=== PATIENT | female | born 1950 | race Caucasian/White ===

== ENCOUNTER 2023-11-30 10:11 | Outpatient (CLI) | payer MEDICARE, SELFPAY ==
--- NOTE | 2023-11-30 10:17 | MM_ITS ---
WS: [id number] BILATERAL 3D TOMOSYNTHESIS DIGITAL DIAGNOSTIC MAMMOGRAPHY WITH CAD CLINICAL INFORMATION: LUMP OR MASS IN BREAST HISTORY: Palpable LEFT breast nodule COMPARISON: 2007 TECHNIQUE: Bilateral CC, MLO, and ML views. FINDINGS: The breasts are composed of heterogeneous fibroglandular density, which can limit the detection of sm all underlying mass lesions. Deep to the palpable marker upper outer LEFT breast spiculated irregular lesion measuring 1.8 x 2.1 cm suspicious for neoplasm. Additional small 5 mm ovoid lesion posteriorly near the chest wall near the 6 o'clock position. Ultra sound of this area also performed. Ultrasound LEFT breast is pending. ULTRASOUND BREAST LEFT TECHNIQUE: Ultrasound left breast focused area of concern. CLINICAL INFORMATION: LUMP OR MASS IN BREAST FINDINGS: Ultrasound upper outer quadrant LEFT breast. At the 1 o'clock position 5 cm from the nipple is an irr egular hypoechoic mass suspicious for neoplasm measuring 2.3 x 2.1 x 2.0 cm. Associated irregular mar gins suspicious for surrounding parenchymal invasion. Recommend ultrasound-guided biopsy of this lesi on. No abnormalities visualized in the LEFT axilla. No enlarged lymph nodes visualized. No abnormalities visualized near the 6 o'clock position LEFT breast. MM/MM diag BI tomosynthesis [id number] IMPRESSION: DENSITY: The breasts are heterogeneously dense, which may obscure small masses. BI-RADS: 5 - Highly suggestive of Malignancy FOLLOW UP: US Guided Biopsy Recommended Recommend ultrasound-guided biopsy of the upper outer quadrant LEFT breast mass
== END 2023-11-30 10:12 | disposition home or self-care (01) ==
LOC: RAD 10:16
PROVIDERS: PCP Family Medicine; Visit Provider Family Medicine
DX: N63.22 Unspecified lump in the left breast, upper inner quadrant (principal); R92.333 Mammographic heterogeneous density, bilateral breasts
CPT/HCPCS: 76642; 77062; G0279

== ENCOUNTER → 2023-12-13 08:44 | Outpatient (BNVA) | payer MEDICARE, SELFPAY | PROVIDERS: PCP Family Medicine; Referring Provider Family Medicine; Visit Provider Surgery | DX: N64.59 Other signs and symptoms in breast (principal); N63.21 Unspecified lump in the left breast, upper outer quadrant | CPT/HCPCS: 99204 ==

== ENCOUNTER 2023-12-27 10:52 | Outpatient (CLI) | payer MEDICARE, SELFPAY | END 2023-12-27 10:53 | disposition home or self-care (01) | LOC: RAD 10:52 | PROVIDERS: PCP Family Medicine; Visit Provider Family Medicine | DX: D05.02 Lobular carcinoma in situ of left breast (principal) | CPT/HCPCS: 19083; 88305; 88361; 88374 ==

== ENCOUNTER → 2024-01-04 09:50 | Outpatient (BNVA) | payer MEDICARE, SELFPAY | PROVIDERS: PCP Family Medicine; Visit Provider Surgery | DX: Z09 Encounter for follow-up examination after completed treatment for conditions other than malignant neoplasm (principal); C50.912 Malignant neoplasm of unspecified site of left female breast | CPT/HCPCS: 99215 ==

== ENCOUNTER 2024-01-08 13:58 | Oncology outpatient (recurring) (ONCR) | payer MEDICARE, SELFPAY | END 2024-01-13 23:59 | disposition home or self-care (01) | LOC: ONCMED 13:58 | PROVIDERS: PCP Family Medicine; Visit Provider Internal Medicine Medical Oncology | DX: C50.912 Malignant neoplasm of unspecified site of left female breast (principal) | CPT/HCPCS: 99204 ==

== ENCOUNTER 2024-01-15 05:42 | Day surgery (SDC) | payer MEDICARE, SELFPAY ==
[2024-01-15] VITALS (12 sets, daily range): BP systolic 130–165; BP diastolic 56–85; PULSE 69–83; RESP 12–18; TEMP 36.1–36.4; O2SAT 96–99; BMI 25.9
--- NOTE | 2024-01-15 05:54 | NM_ITS ---
WS: [id number] NUCLEAR MEDICINE SENTINEL LYMPH NODE IMAGING HISTORY: left breast cancer. Mass localizes to 1:00, 5 cm from the nipple as noted on prior imaging jefferson baltaazr. COMPARISON: LEFT breast ultrasound and biopsy 12/27/2023 TECHNIQUE: The patient was injected with 512 uCi of Technetium 99 Tilmanocept injection is intraderm al LEFT upper quadrant. Single injection. On the imaging several lymph nodes are identified extending towards the LEFT axilla and axillary tail. NM/NM sentinel node inject [id number] IMPRESSION: Uncomplicated sentinel node injection LEFT breast.
--- NOTE | 2024-01-15 06:27 | PC.NURSE ---
0628 - to nuclear med.
--- NOTE | 2024-01-15 07:58 | PC.NURSE ---
0758 - returned from [facility]
[2024-01-15] MEDS: sodium chloride 0.9% 1,000 ML 30 ML IV (08:04)
--- NOTE | 2024-01-15 08:16 | ANES.PREANE2 ---
Pre-Anesthetic Assessment Height/Weight: Height 5 ft 5 in Weight 156 lb Temp Pulse Resp BP Pulse Ox O2 Del Method 97.3 F L 74 18 165/85 97 Room Air 01/15/24 06:11 01/15/24 06:11 01/15/24 06:11 01/15/24 06:11 01/15/24 06:11 01/15/24 06:19 Preop Diagnosis: Breast carcinoma Operation Date: 01/15/24 09:35 Proposed Procedures p left breast lumpectomy sentinel node biopsy 22825, 82342, 56418, 46005, C50.912, N63.0(Left) - Kurt Segura MD s Lymphoscintigraphy(Left) - Kurt Segura MD Was Beta Alexander taken within 24 hours: N/A Was Clonidine taken within 24 hours: N/A Last intake: Intake Last Liquid Date 01/14/24 Last Liquid Time 21:30 Last Solid Date 01/14/24 Last Solid Time 17:30 Social No alcohol and No tobacco Exam alert, oriented x 3, clear to auscultation bilaterally and regular rate & rhythm Airway Submandibular: within normal limits Cervical ROM: within normal limits Mallampati: Class I Dentition: full Anesthetic Plan ASA status: 3 Anesthesia: General Other: History of PONV NPO since yesterday History of GERD, controlled with omeprazole Denies any cardiac or pulmonary issues Preop BP 165/85 METs greater than 4 Plan for general anesthetic Medications/Allergies Home Medications Medication Instructions Recorded Confirmed Last Taken Type omeprazole 20 mg capsule,delayed 20 mg PO DAILY PRN Acid Reflux 12/13/23 01/15/24 01/14/24 21:30 History release Allergies Allergy/AdvReac Type Severity Reaction Status Date / Time No Known Allergies Allergy Verified 01/10/24 12:37 Current Medications Generic Name Dose Route Start Last Admin Trade Name Freq PRN Reason Stop Dose Admin Sodium Chloride 1,000 mls @ 30 mls/hr 01/15/24 06:00 01/15/24 08:04 Sodium Chloride 0.9% IV 01/16/24 05:59 30 mls/hr .Q24H PHILIP Administration PFSH Anesthesia Family History Father Lymphoma Family/Other Breast cancer aunts on both sides Social History Smoking and tobacco/nicotine status: never used tobacco/nicotine Data Anesthesia Cardiac Studies: No Data to Display
--- NOTE | 2024-01-15 09:10 | P.HPUD_ITS ---
Surgery/Procedure H&P Update DATE OF PROCEDURE: January 15, 2024 DATE H&P PERFORMED: 01/04/24 H&P UPDATE INFORMATION: I have reviewed H&P completed within last 30 days, I have examined patient prior to procedure, No changes to prior documentation and H&P is in [facility] EMR on date indicated CHANGES TO PREVIOUS DOCUMENTATION: I had extensive discussion with the patient regarding proposed surgery, I discussed all recent benefits of the procedure including the risks of bleeding, infection, positive margins requiring further surgical excision, abscess formation, poor cosmetic outcome, need for additional surgical interventions. Regarding the axillary explained the risks of injury to the nerves and arteries resulting in long-term sequela to the left upper extremity, risk of needing to return to the OR for an axillary dissection in the case of a positive note. Patient shows understanding agrees to proceed. PREOP DIAGNOSIS: Breast carcinoma PLANNED PROCEDURE: Operation Date: 01/15/24 09:35 Proposed Procedures p left breast lumpectomy sentinel node biopsy 35088, 06852, 99721, 15611, C50.912, N63.0(Left) - Kurt Segura MD s Lymphoscintigraphy(Left) - Kurt Segura MD
[2024-01-15] MEDS: ceFAZolin 2,000 mg SDV 2000 MG IVP (09:41)
[2024-01-15] MEDS: isosulfan blue 10 mg/mL SDV 5mL SUBCUT (10:16)
[2024-01-15] MEDS: BUPivacaine 0.25% INJ 10 mL INJECTION (11:28)
[2024-01-15] MEDS: lidocaine-epi 1% 20 mL INJ INJECTION (11:28)
--- NOTE | 2024-01-15 11:48 | P.OP_ITS ---
Operative Report Date of procedure: January 15, 2024 Pre-op diagnosis: Left breast cancer Post-op diagnosis: same Post-op findings: Left breast mass was palpable in the left outer quadrant measuring about 4 x 2 cm Procedure done: Left breast partial mastectomy, left axillary sentinel node biopsy Implants: None Specimens removed/disposition: Left breast mass sharma short superior long lateral, inferior margin, lateral margin. Left axillary sentinel node Surgeon: Kurt Segura MD Strength And Conditioning Coach: AGUSTINA OR STaff Estimated blood loss: 10 Complications: none Brief History: This is a 73-year-old female who presents to our office for evaluation of left breast cancer, after discussion of all risk and benefits as documented in my preop note with side to proceed to the OR for a partial mastectomy and left axillary sentinel node biopsy. Patient presented early to the hospital and went to nuclear medicine for lymphoscintigraphy and indication of the left axillary node. Procedure: Patient was brought into the OR, she was placed in a supine position. General anesthesia was given. I then infiltrated 2 cc of isosulfan blue on the left breast around the area of the lesion, I then proceeded to massage the breast for about 5 minutes to allow for diffusion of the dye. The left chest and axilla were prepped and draped in the usual sterile fashion. The left axillary mass was palpable. I made a 5 cm incision overlying the area of the mass in the left upper outer quadrant, the superficial breast fascia was opened, I then created flaps in the superior inferior medial and lateral direction taking careful consideration of not involving the superior aspect of the mass. Once the mass was completely confidentially dissected I then proceeded to grasp the mass with towel clamps allowing me to retract it through the wound, I then proceeded to circumferentially dissect the mass with electrocautery, the mass was completely including in the specimen, the specimen was completely excised and was marked short superior and long lateral and sent to pathology, I then proceeded to evaluate the area of resection, there was a small area of induration in the inferior aspect that I decided to excise with electrocautery and sent as inferior margin, and the lateral margin I also was able to palpate a small area of induration that was excised and sent as lateral margin. Hemostasis was achieved, the wound was profusely irrigated with saline. I then proceeded to closed in layers following oncoplastic principles, used #2-0 Vicryl for the deep breast tissue, #3-0 Vicryl for the superficial breast fascia #4 Monocryl for the skin. We then switch gloves and instruments and then focus on the axilla, with the help of a gram probe identified the area of greatest uptake in the left axilla. I then proceeded to make a 3.5 cm incision, the incision was deepened into subcutaneous tissue until the axillary fascia was identified. The axillary fascia was elevated with clamps and then opened with electrocautery, I then used the gamma probe to identify the sentinel node. The node was then grasped with an Allis clamp and I will proceed with blunt circumferential dissection. The vascular pedicle for the node was then taken down with electrocautery. The number was verified outside of the body has been positive with the gamma probe, no residual radiation was noted at the level of the axilla. The node was sent as a specimen. The wound was irrigated, hemostasis was achieved and the wound was closed in layers using #3-0 Vicryl for the axillary fascia and subcutaneous tissue and #4 Monocryl for the skin. At the end of the procedure Dermabond and Steri-Strips were applied and the wounds and the wounds were covered with fluffs. Before closing the skin local anesthesia was infiltrated in both wounds. At the end of the procedure all counts were correct, the patient tolerated well the procedure was transferred to PACU in stable condition.
[2024-01-15] MEDS: oxyCODONE 5 mg IR Tab/Cap PO (12:47)
--- NOTE | 2024-01-15 13:25 | ANE.PACU2 ---
Inpatient post-anesthesia follow up: Airway intact: Yes Vital signs: Temperature 97 F Pulse Rate 70 Respiratory Rate 16 Blood Pressure 145/64 Pulse Oximetry 97 Oxygen Delivery Me thod Room Air Oxygen Flow Rate 6 Fraction of Inspir ed Oxygen Hydration adequate: Yes Nausea and vomiting: No Pain level: 1 Mental status: Baseline
== END 2024-01-15 13:25 | disposition home or self-care (01) ==
PROVIDERS: PCP Family Medicine; Visit Provider Surgery
PROC: (CPT 19120; principal; 2024-01-15 09:25)
PROC: (CPT 78195; 2024-01-15 09:25)
DX: C50.912 Malignant neoplasm of unspecified site of left female breast (principal); K21.9 Gastro-esophageal reflux disease without esophagitis
CPT/HCPCS: 19303; 38500; 38792; 88307; A9520; J0131; J0690; J1100; J2405; J2704; J3010; J3490; J7030; Q9968

== ENCOUNTER → 2024-01-18 11:24 | Outpatient (BNVA) | payer MEDICARE, SELFPAY | PROVIDERS: PCP Family Medicine; Visit Provider Surgery | DX: Z09 Encounter for follow-up examination after completed treatment for conditions other than malignant neoplasm (principal) | CPT/HCPCS: 99213 ==

== ENCOUNTER → 2024-01-24 10:57 | Outpatient (BNVA) | payer MEDICARE, SELFPAY | PROVIDERS: PCP Family Medicine; Visit Provider Surgery | DX: C50.912 Malignant neoplasm of unspecified site of left female breast (principal); N63.0 Unspecified lump in unspecified breast | CPT/HCPCS: 99024 ==

== ENCOUNTER 2024-01-29 07:49 | Day surgery (SDC) | payer MEDICARE, SELFPAY ==
[2024-01-29] VITALS (10 sets, daily range): BP systolic 98–165; BP diastolic 54–88; PULSE 58–81; RESP 16–18; TEMP 36.2–36.4; O2SAT 92–97; BMI 26.1
--- NOTE | 2024-01-29 05:41 | P.HPUD_ITS ---
Surgery/Procedure H&P Update DATE OF PROCEDURE: January 29, 2024 DATE H&P PERFORMED: 01/24/24 H&P UPDATE INFORMATION: I have reviewed H&P completed within last 30 days, I have examined patient prior to procedure, No changes to prior documentation and H&P is in [facility] EMR on date indicated PLANNED PROCEDURE: Operation Date: 01/29/24 09:20 Proposed Procedures p Excision of Breast Mass Breast Lumpectomy 25100, C50.912(Left) - Kurt Segura MD
[2024-01-29] MEDS: sodium chloride 0.9% 1,000 ML 30 ML IV (08:15)
--- NOTE | 2024-01-29 08:34 | ANES.PREANE2 ---
Pre-Anesthetic Assessment Height/Weight: Height 1.65 m Weight 71.214 kg Temp Pulse Resp BP Pulse Ox O2 Del Method 97.6 F 81 18 165/88 97 Room Air 01/29/24 08:06 01/29/24 08:06 01/29/24 08:06 01/29/24 08:06 01/29/24 08:06 01/29/24 08:06 Preop Diagnosis: Left breast cancer Operation Date: 01/29/24 09:20 Proposed Procedures p Excision of Breast Mass Breast Lumpectomy 53211, C50.912(Left) - Kurt Segura MD Familial anesthetic complications: None Was Beta Alexander taken within 24 hours: N/A Was Clonidine taken within 24 hours: N/A Last intake: Intake Last Liquid Date 01/28/24 Last Liquid Time 21:30 Last Solid Date 01/28/24 Last Solid Time 18:00 Social No alcohol and No tobacco Exam alert, oriented x 3, clear to auscultation bilaterally and regular rate & rhythm GI Gastroesophageal Reflux Disease Anesthetic Plan ASA status: 2 Anesthesia: General Risk of > 500 ml blood loss (7ml/kg in children): No Medications/Allergies Home Medications Medication Instructions Recorded Confirmed Last Taken Type omeprazole 20 mg capsule,delayed 20 mg PO DAILY PRN Acid Reflux 12/13/23 01/25/24 01/14/24 21:30 History release Allergies Allergy/AdvReac Type Severity Reaction Status Date / Time meloxicam Allergy ALGY-Rash Verified 01/25/24 11:50 Current Medications Generic Name Dose Route Start Last Admin Trade Name Freq PRN Reason Stop Dose Admin Sodium Chloride 1,000 mls @ 30 mls/hr 01/29/24 08:00 01/29/24 08:15 Sodium Chloride 0.9% IV 01/30/24 07:59 30 mls/hr .Q24H PHILIP Administration PFSH Anesthesia Family History Father Lymphoma Family/Other Breast cancer aunts on both sides Social History Smoking and tobacco/nicotine status: never used tobacco/nicotine Data Anesthesia Cardiac Studies: No Data to Display
[2024-01-29] MEDS: ceFAZolin 2,000 mg SDV 2000 MG IVP (08:38)
[2024-01-29] MEDS: BUPivacaine 0.25% INJ 10 mL INJECTION (09:05)
[2024-01-29] MEDS: lidocaine-epi 1% 20 mL INJ INJECTION (09:05)
--- NOTE | 2024-01-29 10:33 | P.OP_ITS ---
Operative Report Date of procedure: January 29, 2024 Pre-op diagnosis: Left breast cancer Post-op diagnosis: Same Post-op findings: Normal postsurgical changes in the left breast Procedure done: Lumpectomy with re-excision of left breast cancer margins Implants: None Specimens removed/disposition: Medial margin marked lateral, superficial margin marked superficial, superior margin marked superior. Surgeon: Kurt Segura MD [employer] Attendant: [facility] OR Staff Estimated blood loss: 10 Brief History: Is a 73-year-old female with a history of lobular carcinoma of the left breast, underwent excision with a partial mastectomy, superficial superior and medial margins were focally positive, therefore reexcision was indicated. After discussion of risk and benefits as documented my preop note we decided to proceed. Procedure: Patient was brought into the OR, she was placed in a supine position. General anesthesia was given. The left chest was prepped and draped in usual sterile fashion. A timeout was conducted. I then proceeded to open the previous surgical incision with a 15 blade, the incision was deepened until the excision cavity was identified, a very small seroma was evacuated. At this point I decided to start with excision of the medial margin, I grasped the medial breast tissue with 2 Allis clamps and proceeded to circumferentially the excised the medial margin, I did this until healthy breast tissue was visualized, the specimen was excised with electrocautery and it was marked with 2-0 silk in the lateral position. I then proceeded to remove the superficial margin, I used skin hooks to elevate the skin and then created a very superficial flap underneath the breast fascia in a circumferential fashion around the area of resection, this flap was then completely excised and was marked with silk in the superficial aspect for orientation. Finally I decided to take the superior margin, I grasped the superior tissue with Allis clamps and then I proceeded to use electrocautery to circumferentially dissect the tissue Interval healthy breast tissue was noted. The specimen was completely excised and was marked with silk in the superior direction for orientation. Hemostasis was obtained in the cavity. The wound edges were excised with a fresh blade to allow for better approximation of the skin. The cavity was irrigated and hemostasis was verified. Local anesthesia was infiltrated. I then proceeded to close the cavity following oncoplastic principles with #2-0 Vicryl for the deep tissue #3- 0 Vicryl for the superficial breast fascia #4-0 Monocryl for the skin. Steri- Strips were applied and a supportive bra was placed. Due to the large amount of tissue that was removed during the previous operation as well as this 1 in the case of any positive margins patient next step will be to have a mastectomy.
[2024-01-29] MEDS: oxyCODONE 5 mg IR Tab/Cap PO (11:00)
--- NOTE | 2024-01-29 11:20 | SUR.PHASEII ---
[facility] program not working right now and patients meds did not send to [facility]. Printed Oxy RX and called in Augmentin and Miralax RX to [facility]
--- NOTE | 2024-01-29 11:35 | ANE.PACU2 ---
Inpatient post-anesthesia follow up: Airway intact: Yes Vital signs: Temperature 97.2 F Pulse Rate 70 Respiratory Rate 18 Blood Pressure 122/73 Pulse Oximetry 96 Oxygen Delivery Me thod Room Air Oxygen Flow Rate Fraction of Inspir ed Oxygen Hydration adequate: Yes Nausea and vomiting: No Pain level: 1 Mental status: Baseline
== END 2024-01-29 11:34 | disposition home or self-care (01) ==
PROVIDERS: PCP Family Medicine; Visit Provider Surgery
PROC: (CPT 19120; principal; 2024-01-29 09:10)
DX: C50.912 Malignant neoplasm of unspecified site of left female breast (principal); K21.9 Gastro-esophageal reflux disease without esophagitis
CPT/HCPCS: 19301; 88307; J0131; J0690; J1100; J2405; J2704; J3010; J3490; J7030

== ENCOUNTER → 2024-02-05 12:34 | Outpatient (BNVA) | payer MEDICARE, SELFPAY | PROVIDERS: PCP Family Medicine; Visit Provider Surgery | DX: R03.0 Elevated blood-pressure reading, without diagnosis of hypertension (principal); N63.20 Unspecified lump in the left breast, unspecified quadrant; C50.912 Malignant neoplasm of unspecified site of left female breast | CPT/HCPCS: 99024 ==

== ENCOUNTER 2024-03-15 10:31 | Oncology outpatient (recurring) (ONCR) | payer MEDICARE, SELFPAY ==
--- NOTE | 2024-02-19 11:00 | N.ONRAD NP_ITS ---
Radiation Oncology New Patient Visit Patient: Cali Germain MR#: [id number] : 1950> Age: 73> Sex: Female> Dictated by: Dr. Luzmaria Ponce Date of Service: 02/19/2024 Referring Physician(s) : Diagnosis: Infiltrating lobular carcinoma the breast grade 2, ER/GA positive H ER 2 negative stage T2 N0 stage II Radiotherapy to date: Summary > No prior radiation therapy. Chief Complaint / History of Present Illness: Patient is a 73-year-old lady who initially had a lump in the left breast. She had a biopsy done which showed lobular carcinoma. She subsequently underwent her initial surgery on January 18, 2024. 2 sampled nodes were negative. The mass itself was 3.3 cm in size, ER/GA positive, and H ER 2 negative. She had positive margins at that time and she had reexcision done on 01/29/2024. No residual disease was noted. She is here today to discuss the radiation portion of her treatment. Current Medications: On pyrazole Allergies: Meloxicam Medical History: No history of collagen vascular disease. No previous radiation therapy. Surgical History: Breast conserving surgery Family History: Positive for non-Hodgkin's lymphoma Social History: She is a non-smoker nondrinker, she currently lives with her partner Current Complaints / Review of Systems: . Breast is still sore. She wears 2 bras most of the time for support. Vital Signs: Performed on 02/19/2024 10:38 AM BMI - 25.794 kg/m2 (high), Height - 65 in, Weight - 155 lbs, Temperature - 98.7 f, Pulse - 78 /min, Respiration - 17 /min, O2 Sat - 96 %, Pain - 0, Fatigue - 0 and BP - 154/ 87 mm(hg)(high/). Physical Exam: General: Patient is in no apparent distress. She is companied by her partner. HEENT: Normocephalic atraumatic. Pupils are equal, sclera clear, extraocular muscles intact Pulmonary: Respiratory rate is regular nonlabored Cardiovascular: Regular rate and rhythm Breast: Examination left breast does not reveal any erythema or drainage. She has several Steri-Strips over the incision. Axillary incision is healed nicely without erythema or drainage. Abdomen: Fairly flat with minimal adipose tissue Extremities: Without obvious edema or lymphedema in the upper extremities Neurological: Alert and orient x 3. Gait and speech within normal limits Psych: Affect appropriate for current situation Performance Status: 100 Pathology: Lab: Imaging: See HPI Impression: Stage T2 N0 infiltrating lobular carcinoma the breast Plan: At this time we talked about the breast conserving therapy. We reviewed the different protocols we currently have for breast patients. After some discussion of the different protocols she is elected to proceed with a 4-week course of treatment. Will have her return after her appointment with her surgeon next week when she has been cleared for treatment. We talked about the risks and side effects of the radiation both acute and long-term. She had no additional questions or concerns. She will return next week to hopefully undergo simulation and begin her treatment shortly thereafter Signed by: 02/19/2024 10:58:57 AM <<Signature on File>> Time spent with patient: 45 CPT Code: CPT Code:
--- NOTE | 2024-03-05 13:48 | ONCRAD TMN_ITS ---
Radiation Oncology Weekly Treatment Management Patient: Jessa Solomon MR#: [id number] : 1950> Attending Physician: Dr. Luzmaria Ponce Date of Service: 03/05/2024 Fractions: 2 out of 20 Referring Physician(s) : Diagnosis: C50.412 - Malignant neoplasm of upper-outer quadrant of left female breast, Diagnosed 02/19/2024 (Active) Radiotherapy to date: Course: L breast, Treatment Site: L Breast, Ref. ID: [id number], Energy: 15X/6X, Dose/Fx (cGy): 266, #Fx: 2 / 16, Dose Correction (cGy): 0, Total Dose Delivered (cGy): 532, Start Date: 03/04/2024, Elapsed Days: 1 Reason for visit: The patient is being seen today as part of their regularly scheduled weekly on treatment visits to assess for acute toxicities from radiotherapy. Review of Systems: Patient has noticed no changes. She is chicken tender enough that she is wearing a bra even at bedtime Vital Signs: Performed on 03/05/2024 1:33 PM BMI - 25.427 kg/m2 (high), Height - 65 in, Weight - 152.8 lbs, Temperature - 97.1 f, Pulse - 76 /min, Respiration - 18 /min, O2 Sat - 97 %, Pain - 0, Fatigue - 0 and BP - 165/ 95 mm(hg)(high). Physical Exam: No changes on exam Imaging: Radiation therapy imaging related to accurate target localization (i.e. KV, MV and CBCT) was reviewed. Appropriate changes, if any, were made to ensure treatment accuracy. Plan: Will continue with her treatments as planned Signed by: Dr. Luzmaria Ponce 03/05/2024 1:46:48 PM
--- NOTE | 2024-03-06 14:00 | XR_ITS ---
WS: [id number] SCREENING DEXA SCAN [employer] CLINICAL INFORMATION: assess for osteoporosis COMPARISON: None. FINDINGS: The L1-L4 bone mineral density measures 1.010 g/cm2. This corresponds to a T score score of -1.4 and Z score of 0.1. Left femoral neck bone mineral density measures 0.837 g/cm2. This corresponds to a T score of -1.4 an d Z score of 0.1. Right femoral neck bone mineral density measures 0.793 g/cm2. This corresponds to a T score -1.7of an d Z score of -0.3. Mean femoral neck bone mineral density measures 0.815 g/cm2. This corresponds to a T score of -1.5 an d Z score of -0.1. XR/XR DEXA axial skeleton* 68329 IMPRESSION: Osteopenia lumbar spine. Osteopenia femoral necks. Patient's FRAX calculated 10 year probability for major osteoporotic fracture i s 14.4% and osteoporotic hip fracture is 3.6%.
--- NOTE | 2024-03-12 13:28 | ONCRAD TMN_ITS ---
Radiation Oncology Weekly Treatment Management Patient: Cali Germain MR#: [id number] : 1950 Attending Physician: Dr. Lzumaria Ponce Date of Service: 03/12/2024 Fractions: 6 7 out of 20 Referring Physician(s) : Diagnosis: C50.412 - Malignant neoplasm of upper-outer quadrant of left female breast, Diagnosed 02/19/2024 (Active) Radiotherapy to date: Course: L breast, Treatment Site: L Breast, Ref. ID: [id number], Energy: 15X/6X, Dose/Fx (cGy): 266, #Fx: / 16, Dose Correction (cGy): 0, Total Dose Delivered (cGy): 1,862, Start Date: 03/04/2024, Elapsed Days: 8 Reason for visit: The patient is being seen today as part of their regularly scheduled weekly on treatment visits to assess for acute toxicities from radiotherapy. Review of Systems: Patient has noticed the nipple is a little more sensitive. She is also having the sharp shooting pains associated with postsurgery healing Vital Signs: Performed on 03/12/2024 1:18 PM BMI - 25.161 kg/m2 (high), Height - 65 in, Weight - 151.2 lbs, Temperature - 97.3 f, Pulse - 70 /min, Respiration - 16 /min, O2 Sat - 96 %, Pain - 0, Fatigue - 0 and BP - 152/ 86 mm(hg)(high/). Physical Exam: On exam the skin actually looks a little less erythematous Imaging: Radiation therapy imaging related to accurate target localization (i.e. KV, MV and CBCT) was reviewed. Appropriate changes, if any, were made to ensure treatment accuracy. Plan: Will continue with her treatments as planned. Signed by: Dr. Luzmaria Ponce 03/12/2024 1:27:18 PM
== END 2024-03-15 23:59 | disposition home or self-care (01) ==
PROVIDERS: PCP Family Medicine; Visit Provider Radiology Radiation Oncology
DX: Z51.0 Encounter for antineoplastic radiation therapy (principal); Z17.0 Estrogen receptor positive status [ER+]; C50.412 Malignant neoplasm of upper-outer quadrant of left female breast
CPT/HCPCS: 77080; 77295; 77300; 77332; 77334; 77336; 77387; 77412; 99024; 99214

== ENCOUNTER 2024-03-29 10:47 | Oncology outpatient (recurring) (ONCR) | payer MEDICARE, SELFPAY ==
--- NOTE | 2024-03-19 13:45 | ONCRAD TMN_ITS ---
Radiation Oncology Weekly Treatment Management Patient: Jessa Solomon MR#: [id number] : 1950> Attending Physician: Dr. 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 ID: [id number], Energy: 15X/6X, Dose/Fx (cGy): 266, #Fx: / 16, Dose Correction (cGy): 0, Total Dose Delivered (cGy): 3,192, Start Date: 03/04/2024, Elapsed Days: 15 Reason for visit: The patient is being seen today as part of their regularly scheduled weekly on treatment visits to assess for acute toxicities from radiotherapy. Review of Systems: Patient had some sharp shooting pain in her breast yesterday. Vital Signs: Performed on 03/19/2024 1:10 PM BMI - 25.161 kg/m2 (high), Height - 65 in, Weight - 151.2 lbs, Temperature - 96.3 f, Pulse - 73 /min, Respiration - 18 /min, O2 Sat - 97 %, Pain - 0, Fatigue - 0 and BP - 169/ 85 mm(hg)(high/). Physical Exam: On exam her skin is mildly erythematous Imaging: Radiation therapy imaging related to accurate target localization (i.e. KV, MV and CBCT) was reviewed. Appropriate changes, if any, were made to ensure treatment accuracy. Plan: Will continue with her treatments as planned Signed by: Dr. Luzmaria Ponce 03/19/2024 1:44:09 PM
--- NOTE | 2024-03-26 13:44 | ONCRAD TMN_ITS ---
Radiation Oncology Weekly Treatment Management Patient: Cali Germain MR#: [id number] : 1950 Attending Physician: Dr. 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 ID: [id number], Energy: 15X/6X, Dose/Fx (cGy): 266, #Fx: 16 / 16, Dose Correction (cGy): 0, Total Dose Delivered (cGy): 4,256, Start Date: 03/04/2024, End Date: 03/25/2024, Elapsed Days: 21 Course: L breast, Treatment Site: Boost, Ref. ID: [id number], Energy: 15X/6X, Dose/Fx (cGy): 250,#Fx: 1 / 4, Dose Correction (cGy): 0,Total Dose Delivered (cGy): 250, Start, Date: 03/26/2024, Elapsed Days: 0 Reason for visit: The patient is being seen today as part of their regularly scheduled weekly on treatment visits to assess for acute toxicities from radiotherapy. Review of Systems: Patient has developed a pruritic rash in the medial upper quadrant Vital Signs: Performed on 03/26/2024 1:23 PM BMI - 25.261 kg/m2 (high), Height - 65 in, Weight - 151.8 lbs, Temperature - 96.3 f, Pulse - 77 /min, Respiration - 16 /min, O2 Sat - 98 %, Pain - 0, Fatigue - 0 and BP - 167/ 92 mm(hg)(high). Physical Exam: On exam she has a very erythematous raised pruritic rash in the medial upper quadrant Imaging: Radiation therapy imaging related to accurate target localization (i.e. KV, MV and CBCT) was reviewed. Appropriate changes, if any, were made to ensure treatment accuracy. Plan: She will continue use cortisone cream. I have also sent Silvadene to her pharmacy. Will otherwise continue with her treatments as planned. Signed by: Dr. Luzmaria Ponce 03/26/2024 1:43:30 PM
--- NOTE | 2024-04-01 13:30 | N.ONRD TS_ITS ---
Radiation Oncology Treatment Summary Patient: Jessa>Juanito MR#: [id number] : 1950> Age: 73> Sex: Female Dictated by: Dr. 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 ID: [id number], Energy: 15X/6X, Dose/Fx (cGy): 266, #Fx: 16 / 16, Dose Correction (cGy): 0, Total Dose Delivered (cGy): 4,256, Start Date: 03/04/2024, End Date: 03/25/2024, Elapsed Days: 21 Treatment Site: Boost, Ref. ID: [id number], Energy: 15X/6X, Dose/Fx (cGy): 250, #Fx: 4 / 4, Dose Correction (cGy): 0, Total Dose Delivered (cGy): 1,000, Start Date: 03/26/2024, End Date: 03/29/2024, Elapsed Days: 3 Clinical Summary: The patient tolerated RT well. She developed a pruritic raised medial upper quadrant skin rash. Plan: End of treatment today. Continue on the above medication until the skin reaction resolves. Follow up in one month. Signed by: Dr. Luzmaria Ponce>04/01/2024 1:28:44 PM <<Signature on File>>
== END 2024-04-12 23:59 | disposition home or self-care (01) ==
PROVIDERS: PCP Family Medicine; Visit Provider Radiology Radiation Oncology
DX: Z51.0 Encounter for antineoplastic radiation therapy (principal); C50.112 Malignant neoplasm of central portion of left female breast; Z17.0 Estrogen receptor positive status [ER+]; Z53.9 Procedure and treatment not carried out, unspecified reason; C50.412 Malignant neoplasm of upper-outer quadrant of left female breast; M85.89 Other specified disorders of bone density and structure, multiple sites; M81.0 Age-related osteoporosis without current pathological fracture
CPT/HCPCS: 77014; 77300; 77321; 77334; 77336; 77385; 77387; 77412; 99024

== ENCOUNTER 2024-06-03 09:02 | Oncology outpatient (recurring) (ONCR) | payer MEDICARE, SELFPAY ==
[2024-06-03 09:12] LABS: Basophils # 0.1 10^3/uL (0.0-0.1); Basophils % 1.2 %; Eosinophils # 0.1 10^3/uL (0.0-0.8); Eosinophils % 1.7 %; Hematocrit 42.6 % (36-47); Lymphocytes # 1.6 10^3/uL (0.8-4.8); Lymphocytes % 26.7 %; Mean Corpuscular HGB Conc 35.7 g/dL (30-55); Mean Corpuscular Hemoglobin 34.4 pg (27-33); Mean Corpuscular Volume 96.4 fl (85-98); Mean Platelet Volume 9.5 fL (7.4-10.4); Monocytes # 0.4 10^3/uL (0.2-0.9); Neutrophils # 3.74 10^3/uL (1.8-7.7); Neutrophils % 64.1 %; Nucleated Red Blood Cells % 0 %; Platelet Count 222 10^3/cmm (157-399); Red Blood Count 4.42 10^6/uL (3.85-5.65); Red Cell Distribution Width 12.7 % (12.1-15.1); White Blood Count 5.84 10^3/uL (3.29-11.43)
[2024-06-03 09:32] LABS: Alanine Aminotransferase 11 U/L (0-33); Albumin Level 4.5 g/dL (3.5-5.2); Alkaline Phosphatase 70 U/L (35-105); Anion Gap 12.4 (5-19); Aspartate Amino Transferase 12 U/L (0-32); Blood Urea Nitrogen 12 mg/dL (8-23); Calcium 9.6 mg/dL (8.5-10.5); Carbon Dioxide 29 mmol/L (22-29); Chloride 103 mmol/L (98-107); Creatinine Clr Calc Pharmacy 63.0895; Globulin 2.8 g/dL (1.3-4.6); Glucose 93 mg/dL (65-115); Osmolality Calculated 289 mOsm/kg (285-295); Potassium 4.4 mmol/L (3.5-5.1); Sodium 140 mmol/L (136-145); Total Bilirubin 1.3 mg/dL (0.15-1.2); Total Protein 7.3 g/dL (6.6-8.7)
[2024-06-03 14:13] LABS: 25 Hydroxy Vitamin D 39 ng/mL (30-100)
== END 2024-06-12 23:59 | disposition home or self-care (01) ==
PROVIDERS: Internal Medicine Medical Oncology; Nurse Practitioner Family; PCP Family Medicine; Visit Provider Radiology Radiation Oncology
DX: Z53.9 Procedure and treatment not carried out, unspecified reason (principal); C50.112 Malignant neoplasm of central portion of left female breast; Z17.0 Estrogen receptor positive status [ER+]; R03.0 Elevated blood-pressure reading, without diagnosis of hypertension; M85.80 Other specified disorders of bone density and structure, unspecified site; Z78.0 Asymptomatic menopausal state; Z79.899 Other long term (current) drug therapy
CPT/HCPCS: 36415; 80053; 82306; 85025; 99214

== ENCOUNTER 2024-07-02 11:44 | Oncology outpatient (recurring) (ONCR) | payer MEDICARE, SELFPAY ==
[2024-07-02 12:13] LABS: Basophils # 0.1 10^3/uL (0.0-0.1); Basophils % 1.6 %; Eosinophils # 0.1 10^3/uL (0.0-0.8); Eosinophils % 1.8 %; Hematocrit 41.8 % (36-47); Lymphocytes # 1.6 10^3/uL (0.8-4.8); Mean Corpuscular HGB Conc 34.7 g/dL (30-55); Mean Corpuscular Hemoglobin 34.3 pg (27-33); Mean Corpuscular Volume 98.8 fl (85-98); Mean Platelet Volume 9.6 fL (7.4-10.4); Monocytes # 0.4 10^3/uL (0.2-0.9); Monocytes % 7.5 %; Neutrophils # 3.21 10^3/uL (1.8-7.7); Neutrophils % 58.9 %; Nucleated Red Blood Cells % 0 %; Platelet Count 212 10^3/cmm (157-399); Red Blood Count 4.23 10^6/uL (3.85-5.65); Red Cell Distribution Width 13.1 % (12.1-15.1); White Blood Count 5.46 10^3/uL (3.29-11.43)
[2024-07-02 12:32] LABS: Alanine Aminotransferase 9 U/L (0-33); Albumin Level 4.3 g/dL (3.5-5.2); Alkaline Phosphatase 66 U/L (35-105); Anion Gap 13.2 (5-19); Aspartate Amino Transferase 11 U/L (0-32); Blood Urea Nitrogen 10 mg/dL (8-23); Calcium 9.4 mg/dL (8.5-10.5); Carbon Dioxide 27 mmol/L (22-29); Chloride 105 mmol/L (98-107); Globulin 2.9 g/dL (1.3-4.6); Glucose 94 mg/dL (65-115); Osmolality Calculated 291 mOsm/kg (285-295); Potassium 4.2 mmol/L (3.5-5.1); Sodium 141 mmol/L (136-145); Total Bilirubin 1.6 mg/dL (0.15-1.2); Total Protein 7.2 g/dL (6.6-8.7)
== END 2024-07-13 23:59 | disposition home or self-care (01) ==
LOC: ONCMED 11:44
PROVIDERS: Nurse Practitioner Family; PCP Family Medicine; Visit Provider Radiology Radiation Oncology
DX: C50.112 Malignant neoplasm of central portion of left female breast (principal); Z17.0 Estrogen receptor positive status [ER+]; R03.0 Elevated blood-pressure reading, without diagnosis of hypertension; M85.80 Other specified disorders of bone density and structure, unspecified site; Z79.899 Other long term (current) drug therapy; Z79.811 Long term (current) use of aromatase inhibitors
CPT/HCPCS: 36415; 80053; 85025; 99214

== ENCOUNTER 2024-08-19 08:51 | Oncology outpatient (recurring) (ONCR) | payer MEDICARE, SELFPAY ==
[2024-08-19 09:11] LABS: Hematocrit 44.0 % (36-47); Hemoglobin 15.40 g/dL (11.27-16.99); Mean Corpuscular HGB Conc 35.0 g/dL (30-55); Mean Corpuscular Hemoglobin 35.4 pg (27-33); Mean Corpuscular Volume 101.1 fl (85-98); Nucleated Red Blood Cells % 0 %; Platelet Count 216 10^3/cmm (157-399); Red Blood Count 4.35 10^6/uL (3.85-5.65); White Blood Count 5.29 10^3/uL (3.29-11.43)
[2024-08-19 09:32] LABS: Alanine Aminotransferase 9 U/L (0-33); Albumin Level 4.4 g/dL (3.5-5.2); Alkaline Phosphatase 75 U/L (35-105); Anion Gap 15.2 (5-19); Aspartate Amino Transferase 11 U/L (0-32); Blood Urea Nitrogen 10 mg/dL (8-23); Calcium 9.5 mg/dL (8.5-10.5); Carbon Dioxide 27 mmol/L (22-29); Chloride 107 mmol/L (98-107); Creatinine Clr Calc Pharmacy 63.0895; Globulin 2.5 g/dL (1.3-4.6); Glucose 90 mg/dL (65-115); Osmolality Calculated 299 mOsm/kg (285-295); Potassium 4.2 mmol/L (3.5-5.1); Sodium 145 mmol/L (136-145); Total Protein 6.9 g/dL (6.6-8.7)
== END 2024-09-12 23:59 | disposition home or self-care (01) ==
PROVIDERS: Nurse Practitioner Family; PCP Family Medicine; Visit Provider Internal Medicine Medical Oncology
DX: C50.112 Malignant neoplasm of central portion of left female breast (principal); Z17.0 Estrogen receptor positive status [ER+]; R03.0 Elevated blood-pressure reading, without diagnosis of hypertension; Z79.899 Other long term (current) drug therapy; Z92.3 Personal history of irradiation
CPT/HCPCS: 36415; 80053; 85025; 99214

== ENCOUNTER 2024-12-02 12:40 | Outpatient (CLI) | payer MEDICARE, SELFPAY ==
--- NOTE | 2024-12-02 13:00 | MM_ITS ---
WS: [id number] BILATERAL 3D TOMOSYNTHESIS DIGITAL DIAGNOSTIC MAMMOGRAPHY WITH CAD CLINICAL INFORMATION: surveillance HISTORY: History of LEFT lumpectomy COMPARISON: 2023 TECHNIQUE: Bilateral CC, MLO, and ML views. FINDINGS: Scattered fibroglandular densities bilaterally. Lumpectomy upper outer LEFT breast with parenchymal fibrosis. Treatment-related changes LEFT breast with skin thickening. A few incidental punctate calcifications. Previously described LEFT breast mass has been resected. New ovoid nodule inner RIGHT breast measuring 8 mm. Recommend RIGHT breast diagnostic mammography and ultrasound if persistent. Additional small new ovoid nodule outer RIGHT breast measuring 5 mm. Recommend RIGHT breast diagnostic mammography and ultrasound if persistent. MM/MM diag BI tomosynthesis [id number] IMPRESSION: DENSITY: There are scattered areas of fibroglandular density. BI-RADS: 0 - Incomplete: Need additional imaging evaluation. FOLLOW UP: Need Additional Imaging Recommend RIGHT breast diagnostic mammography and ultrasound if persistent rega rding the 2 nodules RIGHT breast.
== END 2024-12-02 12:41 | disposition home or self-care (01) ==
LOC: RAD 12:41
PROVIDERS: PCP Family Medicine; Visit Provider Nurse Practitioner Family
DX: C50.112 Malignant neoplasm of central portion of left female breast (principal); Z17.0 Estrogen receptor positive status [ER+]; Z90.12 Acquired absence of left breast and nipple; R92.323 Mammographic fibroglandular density, bilateral breasts; N64.89 Other specified disorders of breast; R92.1 Mammographic calcification found on diagnostic imaging of breast; N63.12 Unspecified lump in the right breast, upper inner quadrant
CPT/HCPCS: 77062; G0279

== ENCOUNTER 2024-12-09 11:25 | Oncology outpatient (recurring) (ONCR) | payer MEDICARE, SELFPAY ==
[2024-12-09 11:40] LABS: Hematocrit 41.5 % (36-47); Hemoglobin 14.80 g/dL (11.27-16.99); Mean Corpuscular HGB Conc 35.7 g/dL (30-55); Mean Corpuscular Hemoglobin 35.7 pg (27-33); Mean Corpuscular Volume 100.2 fl (85-98); Nucleated Red Blood Cells % 0 %; Platelet Count 237 10^3/cmm (157-399); Red Blood Count 4.14 10^6/uL (3.85-5.65); White Blood Count 6.84 10^3/uL (3.29-11.43)
[2024-12-09 12:04] LABS: Alanine Aminotransferase 14 U/L (0-33); Albumin Level 4.6 g/dL (3.5-5.2); Alkaline Phosphatase 88 U/L (35-105); Anion Gap 15.4 (5-19); Aspartate Amino Transferase 14 U/L (0-32); Blood Urea Nitrogen 11 mg/dL (8-23); Calcium 9.7 mg/dL (8.5-10.5); Carbon Dioxide 26 mmol/L (22-29); Chloride 106 mmol/L (98-107); Creatinine Clr Calc Pharmacy 61.3362; Globulin 2.5 g/dL (1.3-4.6); Glucose 90 mg/dL (65-115); Osmolality Calculated 295 mOsm/kg (285-295); Potassium 4.4 mmol/L (3.5-5.1); Sodium 143 mmol/L (136-145); Total Protein 7.1 g/dL (6.6-8.7)
== END 2024-12-13 23:59 | disposition home or self-care (01) ==
PROVIDERS: PCP Family Medicine; Visit Provider Internal Medicine Medical Oncology
DX: C50.112 Malignant neoplasm of central portion of left female breast (principal); Z17.0 Estrogen receptor positive status [ER+]; R03.0 Elevated blood-pressure reading, without diagnosis of hypertension; Z79.899 Other long term (current) drug therapy; Z92.3 Personal history of irradiation; Z90.12 Acquired absence of left breast and nipple; Z79.811 Long term (current) use of aromatase inhibitors
CPT/HCPCS: 36415; 80053; 85025; 99214

== ENCOUNTER 2024-12-19 13:35 | Oncology outpatient (recurring) (ONCR) | payer MEDICARE, SELFPAY ==
--- NOTE | 2024-12-19 14:00 | MM_ITS ---
WS: [id number] RIGHT 3D TOMOSYNTHESIS DIGITAL MAMMOGRAPHY WITH CAD CLINICAL INFORMATION: Mammogram on 12/02/2024 request for additional imaging HISTORY: Additional views COMPARISON: 12/02/2024 TECHNIQUE: 3 views of the right breast were obtained. FINDINGS: Scattered fibroglandular densities of the right breast. Again seen is a partially obscured 8 mm ovoid nodule inner RIGHT breast. Additional small 5 mm ovoid nodule outer RIGHT breast. ULTRASOUND BREAST RIGHT TECHNIQUE: Ultrasound right breast focused area of concern. CLINICAL INFORMATION: Mammogram on 12/02/2024 request for additional imaging FINDINGS: Ultrasound at the 3:00 and 9:00 positions. No abnormalities at the 3 o'clock position. Solid-appearing hypoechoic nodule at the 9 o'clock position 3 cm from the nipple. This measures approximately 3 x 5 x 3 mm and is taller than wide. Recommend further evaluation with ultrasound-guided biopsy. MM/MM diag RT tomosynthesis [id number] IMPRESSION: DENSITY: There are scattered areas of fibroglandular density. BI-RADS: 4 - Suspicious Finding - Biopsy Should Be Considered. FOLLOW UP: US Guided Biopsy Recommended Recommend ultrasound guided biopsy of the RIGHT breast nodule
--- NOTE | 2024-12-19 14:30 | US_ITS ---
WS: [id number] RIGHT 3D TOMOSYNTHESIS DIGITAL MAMMOGRAPHY WITH CAD CLINICAL INFORMATION: Mammogram on 12/02/2024 request for additional imaging HISTORY: Additional views COMPARISON: 12/02/2024 TECHNIQUE: 3 views of the right breast were obtained. FINDINGS: Scattered fibroglandular densities of the right breast. Again seen is a partially obscured 8 mm ovoid nodule inner RIGHT breast. Additional small 5 mm ovoid nodule outer RIGHT breast. ULTRASOUND BREAST RIGHT TECHNIQUE: Ultrasound right breast focused area of concern. CLINICAL INFORMATION: Mammogram on 12/02/2024 request for additional imaging FINDINGS: Ultrasound at the 3:00 and 9:00 positions. No abnormalities at the 3 o'clock position. Solid-appearing hypoechoic nodule at the 9 o'clock position 3 cm from the nipple. This measures approximately 3 x 5 x 3 mm and is taller than wide. Recommend further evaluation with ultrasound-guided biopsy. US/US breast RT limited* [id number] IMPRESSION: DENSITY: There are scattered areas of fibroglandular density. BI-RADS: 4 - Suspicious Finding - Biopsy Should Be Considered. FOLLOW UP: US Guided Biopsy Recommended Recommend ultrasound guided biopsy of the RIGHT breast nodule
== END 2025-01-12 23:59 | disposition home or self-care (01) ==
PROVIDERS: PCP Family Medicine; Visit Provider Internal Medicine Medical Oncology
DX: N63.15 Unspecified lump in the right breast, overlapping quadrants (principal); R92.321 Mammographic fibroglandular density, right breast
CPT/HCPCS: 76642; 77061; G0279

== ENCOUNTER 2025-01-15 13:04 | Oncology outpatient (recurring) (ONCR) | payer MEDICARE, SELFPAY ==
--- NOTE | 2025-01-15 13:15 | US_ITS ---
WS: [id number] ULTRASOUND RIGHT BREAST, limited HISTORY: recommended biopsy on mammo 12/19/24 COMPARISON: 12/19/2024, 12/02/2024 TECHNIQUE: 2-D and Doppler. Previously described hypoechoic nodule in the RIGHT breast at 9:00 is not identified on today's study. This may have been a cyst that has collapsed. No biopsy will be performed. US/US breast RT limited* [id number] IMPRESSION: BI-RADS: 3- Probably Benign FOLLOW-UP: 6 Month Follow-up Recommend diagnostic RIGHT mammogram in 6 months and ultrasound. Discussed these findings with Mrs. Germain at the time of the exam and the fol low-up recommended.
== END 2025-02-12 23:59 | disposition home or self-care (01) ==
LOC: ONCMED 13:05
PROVIDERS: PCP Family Medicine; Visit Provider Internal Medicine Medical Oncology
DX: R92.8 Other abnormal and inconclusive findings on diagnostic imaging of breast (principal)
CPT/HCPCS: 19083; 76642